=== PATIENT | female | born 1965 ===

== ENCOUNTER 2023-12-15 13:50 | Outpatient (RCR) | payer BC, SELFPAY ==
[2023-12-15 14:00] VITALS: BP 145/89
[2023-12-15] MEDS: RECLAST 100 IV (14:22)
[2023-12-15 14:50] VITALS: BP 127/83; BP 129/83
== END 2023-12-16 09:58 | disposition home or self-care (01) ==
LOC: OID 13:50
PROVIDERS: ATTENDING PHYSICIAN Internal Medicine Endocrinology, Diabetes & Metabolism; FAMILY PHYSICIAN Family Medicine
DX: M81.0 Age-related osteoporosis without current pathological fracture (principal)
CPT/HCPCS: 96365; J3489